=== PATIENT | male | born 1955 | race Caucasian/White ===

== ENCOUNTER 2022-10-15 03:13 | Inpatient (IN) ==
[2022-10-15] MEDS ORDERED: ASPIRIN CHEW 324 MG ONE (03:21)
[2022-10-15] MEDS ORDERED: ASPIRIN CHEW 324 MG PO STA (03:22)
[2022-10-15] MEDS ORDERED: NITROGLYCERIN SL 0.4 MG/TAB TAB ONE (03:22)
[2022-10-15] MEDS ORDERED: NITROGLYCERIN SL 0.4 MG/TAB TAB SL STA (03:22)
[2022-10-15] MEDS ORDERED: fentaNYL citrate PF 100 MCG/2 ML VIAL ONE ×2 (03:22→03:44)
[2022-10-15] MEDS ORDERED: fentaNYL citrate PF 100 MCG/2 ML VIAL IV STA (03:22)
--- NOTE | 2022-10-15 03:25 | Emergency Department Note ---
History of Present Illness General Chief complaint: Chest Pain Stated complaint: CHEST PAIN Time Seen by Provider: 10/15/22 03:14 History of Present Illness Maximum Pain Intensity: 7 66-year-old male presents emergency department onset of substernal chest pressure radiating down his right arm and into his right jaw that started at 11 PM this evening while he was in bed ready for sleep. Patient states has been persistent since that time patient rates it as moderate 5 out of 10 there is no associated nausea vomiting diaphoresis or shortness of breath. Patient did not take any medicine prior to arrival. He has no prior cardiac history. Does not smoke. He has no history of cardiac catheterization in the past. Patient states that the pain was persistent and now presents with the complaint of substernal chest pressure Home Medications Medication Instructions Recorded Confirmed Type omeprazole 20 mg capsule,delayed 20 mg PO DAILY 10/04/20 10/04/20 History release alfuzosin 10 mg tablet,extended 10 mg PO DAILY #90 tabs 10/23/21 10/23/21 Rx release 24 hr (Uroxatral) Allergies Allergy/AdvReac Type Severity Reaction Status Date / Time No Known Allergies Allergy Verified 10/04/20 14:39 Past Med/Surg History Medical History BPH with obstruction/lower urinary tract symptoms Family History Grandfather (Paternal) Prostate cancer Social History Smoking Status: Never smoker Preferred Language: Occitan marital status: 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 Review of Systems A total of 10 systems reviewed and were otherwise negative Cardiovascular: + chest pain and + radiating jaw, neck or arm pain Physical Exam Vital Signs Vital Signs - 24 hr 10/15/22 03:18 10/15/22 03:21 10/15/22 03:25 Temperature 36.5 C Temperature Source Oral Pulse Rate 110 H 103 H 107 H Pulse Rate from SpO2 Sensor Pulse Rhythm Regular Respiratory Rate 20 20 Respiratory Effort / Characteristics Non-Labored Spontaneous Respiratory Depth Normal Respiratory Pattern Regular Blood Pressure 102/66 Blood Pressure [Right Arm] Blood Pressure Mean 78 Blood Pressure Mean [Right Arm] Pulse Oximetry 93 95 Oxygen Delivery Method Room Air Room Air Oxygen Flow Rate Sepsis Recent Fever Within 48 Hours No Sepsis New/Unexplained Change in Mental Status No Sepsis Action Taken by Nursing No Action Required 10/15/22 03:26 10/15/22 03:34 10/15/22 03:35 Temperature Temperature Source Pulse Rate 93 H Pulse Rate from SpO2 Sensor 92 H Pulse Rhythm Respiratory Rate 15 Respiratory Effort / Characteristics Respiratory Depth Respiratory Pattern Blood Pressure 92/66 L Blood Pressure [Right Arm] 118/73 Blood Pressure Mean 74 Blood Pressure Mean [Right Arm] 88 Pulse Oximetry 92 95 Oxygen Delivery Method Room Air Nasal Cannula Oxygen Flow Rate 2 Sepsis Recent Fever Within 48 Hours Sepsis New/Unexplained Change in Mental Status Sepsis Action Taken by Nursing GENERAL: Patient is awake alert in no acute distress patient is resting comfortably and showing no signs of anxiety EYES: The conjunctivae are clear. The pupils are round and reactive. EARS, NOSE, MOUTH AND THROAT: The nose is without any evidence of any deformity. Mucous membranes are moist. Tongue is midline. NECK: The neck is nontender and supple. No JVD RESPIRATORY: Normal respiratory effort is noted there is no evidence of wheezing rhonchi or rales CARDIOVASCULAR: Regular rate and rhythm noted there no murmurs rubs or gallops normal S1 normal S2. GASTROINTESTINAL: The abdomen is soft. Abdomen is nontender. BACK: No midline tenderness or or step-off noted range of motion in flexion extension as well as rotation no signs of muscle spasm noted MUSCULOSKELETAL/EXTREMITIES: There is no evidence of gross deformity full range of motion is noted in the hips and shoulders. SKIN: There is no obvious evidence of any rash. There are no petechiae, pallor or cyanosis noted. No diaphoresis NEUROLOGIC: Patient is awake alert and oriented x3 strength is symmetric Course Reevaluation(s) Reevaluation #1: Patient has been given aspirin, nitro, fentanyl he states the pain is still moderate located in the substernal region with radiation to his right jaw and right arm Time: 03:35 Reevaluation #2: Patient's blood pressure is 93/40 is given IV fluids it is now 102/70 Time: 03:36 Consultations Consultation #1: Dr. Nj at bedside with the patient at 350 Time: 03:53 Consultation #2: Case was discussed with the [facility] for admission Time: 03:53 Administered Medications Discontinued Medications Aspirin (Aspirin Chew 324 Mg) Confirm Administered Dose 324 mg .ROUTE .STK-MED ONE Stop: 10/15/22 03:22 Last Admin: 10/15/22 03:34 Dose: Not Given Documented By: JORGE Aspirin (Aspirin Chew 324 Mg) 324 mg PO NOW STA Stop: 10/15/22 03:23 Last Admin: 10/15/22 03:27 Dose: 324 mg Documented By: JORGE Fentanyl Citrate (Fentanyl Citrate 100 Mcg/2 Ml Vial) Confirm Administered Dose 100 mcg .ROUTE .STK-MED ONE Stop: 10/15/22 03:23 Last Admin: 10/15/22 03:34 Dose: Not Given Documented By: JORGE Fentanyl Citrate (Fentanyl Citrate 100 Mcg/2 Ml Vial) 50 mcg IV NOW STA Stop: 10/15/22 03:23 Last Admin: 10/15/22 03:28 Dose: 50 mcg Documented By: JORGE Nitroglycerin (Nitroglycerin Sl 0.4 Mg/Tab Tab) 0.4 mg SL NOW STA Stop: 10/15/22 03:23 Last Admin: 10/15/22 03:28 Dose: 0.4 mg Documented By: JORGE Nitroglycerin (Nitroglycerin Sl 0.4 Mg/Tab Tab) Confirm Administered Dose 1.2 mg .ROUTE .STK-MED ONE Stop: 10/15/22 03:23 Last Admin: 10/15/22 03:34 Dose: Not Given Documented By: JORGE Critical Care Time Critical Care Time: Yes Total Critical Care Time: 35 I have personally spent greater than 35 minutes of critical care time in the direct management of this patient. This includes bedside care, interpretation of diagnostic studies, and testing, discussion with consultants, patient, and family members, and other required patient management activities. These minutes are in excess of all separately billable procedures. Medical Decision Making Medical Records Attestation: I reviewed the patient's medical records. Home Medications Current Medication List: was personally reviewed by me Laboratory Data Attestation: I reviewed the patient's lab results. 10/15/22 03:29 10/15/22 03:29 Lab Results 10/15/22 Range/Units 03: WBC 3.79 L (4.8-10.8) K/ul RBC 5.06 (4.70-6.10) M/uL Hgb 15.8 (14.0-18.0) g/dl Hct 46.3 (42.0-52.0) % MCV 91.5 (80.0-100.0) fL MCH 31.2 (25.0-34.0) pg MCHC 34.1 (32.0-36.0) g/dL RDW Std Deviation 40.0 (36.4-46.3) fL RDW Coeff of Kayla 12.0 (11.5-14.5) % Plt Count 217 (130-400) K/uL MPV 9.0 L (9.4-12.4) fL Immature Gran % (Auto) 0.3 % Neut % (Auto) 44.3 % Lymph % (Auto) 39.8 % [place] % (Auto) 12.7 % Eos % (Auto) 2.4 % Baso % (Auto) 0.5 % Neut # (Auto) 1.68 (1.40-6.50) K/uL Lymph # (Auto) 1.51 (1.2-3.4) K/uL [place] # (Auto) 0.48 (0.11-0.59) K/uL Eos # (Auto) 0.09 (0-0.50) K/uL Baso # (Auto) 0.02 (0-0.2) K/uL Immature Gran # (Auto) 0.01 (0.01-0.20) K/uL Imaging Data Attestation: I personally reviewed and interpreted this imaging study as follows: My Impression: Chest x-ray interpreted by me normal mediastinum, no pneumothorax, no infiltrate, no effusion ECG Data Attestation: I personally reviewed and interpreted this ECG as follows: Additional Comments: EKG interpreted by me normal sinus rhythm rate of 98 there are segment depressions in V1 and V2 and increase in ST segments in V4 through V6 consistent with a posterolateral FL, normal axis normal intervals, no prior for comparison Telemetry was ordered by me, interpreted by me as sinus tachycardia at 107 MDM Narrative Medical decision making differential diagnosis includes angina, unstable angina, acute FL, acute coronary syndrome, musculoskeletal chest pain, I do not suspect thoracic aortic dissection or pulmonary embolism at this time Patient has an EKG suggestive of posterior lateral FL, a heart called immediately Patient was given aspirin, nitro, fentanyl Impression & Plan Acute ST elevation myocardial infarction (STEMI) of posterolateral wall Discharge Plan Visit Data Chief Complaint: Chest Pain Stated Complaint: CHEST PAIN ED Provider: Roberto Patel Discharge Problem: Acute ST elevation myocardial infarction (STEMI) of posterolateral wall Forms Stand Alone Forms: My [facility] [place] [facility] Prescriptions Prescriptions: No Action omeprazole 20 mg capsule,delayed release(DR/EC) 20 mg PO DAILY alfuzosin [Uroxatral] 10 mg tablet extended release 24 hr 10 mg PO DAILY Qty: 90 3RF Rx Instructions: administer after the same meal each day Referrals Referrals: Truong Nichole MD [Primary Care Provider] -
[2022-10-15] MEDS ORDERED: niCARdipine HCL INJ 2.5 MG/ML 10 ML AMP ONE (03:43)
[2022-10-15] MEDS ORDERED: HEPARIN (PORCINE) 1000 UNIT/ML 10 ML (CATH LAB USE ONLY) ONE (03:43)
[2022-10-15] MEDS ORDERED: MIDAZOLAM HCL 1 MG/ML 2ML VIAL ONE (03:43)
[2022-10-15] MEDS ORDERED: NITROGLYCERIN/D5W 100MCG/ML 20ML SYR ONE (03:44)
--- NOTE | 2022-10-15 03:44 | History & Physical Report ---
Date of Service October 15, 2022 Assessment & Plan (1) Acute ST elevation myocardial infarction (STEMI) of posterolateral wall: Plan: Grant Pete is a 66-year-old male with PMH of BPH who presented due to chest pain. STEMI - EKG c/w posterolateral ischemia - s/p ASHELY to 100% mid circumflex occlusion - Cath also showing mid-LAD 90% stenosis at branch point with diagonals - Cardiology planning for further intervention later this hospitalization - Received Brilinta load - Aspirin 81mg daily, atorvastatin 80mg daily, metoprolol tartrate 12.5mg PO BID, ticagrelor 90mg PO BID - Trend troponin to peak - Check Echocardiogram - Follow Cardiology recs - Admit to ICU for monitoring post PCI/ASHELY BPH - Hold alfuzosin at this time - Defer to ICU/Cardiology GERD - Pantoprazole per hospital formulary DVT ppx: Receiving ASA & ticagrelor, no further chemoppx at this time Diet: Heart healthy Dispo: Admit to ICU CODE STATUS: Full (2) BPH with obstruction/lower urinary tract symptoms: History of Present Illness Primary Care Provider: Truong Nichole MD Grant Pete is a 66-year-old male with PMH of BPH who presented due to chest pain. Symptoms began around 11PM on 10/14 with substernal chest pain radiating to right arm and right jaw. He rated the pain as 5/10 and felt it was persistent. He did not take any medications prior to arrival. He has no prior history of cardiac disease or similar symptoms. He is a nonsmoker. Does have FH of [place] in his father at age 62. In ED, he had an EKG consistent with posterolateral ischemia. Heart alert was called. Patient received aspirin 324mg, nitroglycerin, and fentanyl. He was evaluated by Cardiology who recommended emergent catheterization. He was loaded with Brilinta. Cath showed a 100% mid circumflex occlusion, which was revascularized with one ASHELY. Additionally, was found to have a complex mid- LAD stenosis, 90% at branch point with diagonals -- Cardiology planning for intervention later on this hospitalization. Tolerated procedure well w/o complications. Currently no CP, palp, SOB, n/v, abd pain, back pain, CHEUNG, dizziness. Allergies Allergy/AdvReac Type Severity Reaction Status Date / Time No Known Allergies Allergy Verified 10/04/20 14:39 Home Medications Medication Instructions Recorded Confirmed Type omeprazole 20 mg capsule,delayed 20 mg PO DAILY 10/04/20 10/04/20 History release alfuzosin 10 mg tablet,extended 10 mg PO DAILY #90 tabs 10/23/21 10/23/21 Rx release 24 hr (Uroxatral) Past Med/Surg History Medical History BPH with obstruction/lower urinary tract symptoms Family History Grandfather (Paternal) Prostate cancer Social History Smoking Status: Never smoker Second Hand Exposure: No; Do You Dip or Chew Tobacco: No; Hx Alcohol Use: No Hx Substance Use: No Preferred Language: Welsh Communication Ability: Effective Power Brake Operator Required: No Beliefs That Will Affect Care: None marital status: Current Living Situation: Spouse 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 Groggy. HEENT: PERRL, EOMI. Moist mucous membranes. NECK: No JVD. No lymphadenopathy. CHEST/LUNGS: CTAB A/P. No crackles, wheezes, rales, rhonchi. HEART: RRR. No m/g/r. ABDOMEN: NT/ND, soft. BS+ x4 EXTREMITIES: No cyanosis, no clubbing, no edema SKIN: Warm and dry. No rashes or lesions. NEUROLOGIC: No FND Results & Data Results & Data ([facility]) Vital Signs (Past 12 Hours) Vital Signs Temp Pulse Resp BP BP Pulse Ox O2 Del Method 10/15/22 03:35 93 H 15 92/66 L 95 Nasal Cannula 10/15/22 03:34 92 Room Air 10/15/22 03:26 118/73 10/15/22 03:25 107 H 20 95 Room Air 10/15/22 03:21 103 H 10/15/22 03:18 36.5 C 110 H 20 102/66 93 Room Air O2 Flow Rate 10/15/22 03:35 2 10/15/22 03:34 10/15/22 03:26 10/15/22 03:25 10/15/22 03:21 10/15/22 03:18 Critical Care Time 40 minutes Supervising Physician Co-Signing Physician Notes Attending addendum: I have physically seen this patient, have supervised the medical residents activities, and agree with the H&P unless as otherwise noted. Assessment and Plan: Acute posterior lateral wall STEMI- Patient presented as heart alert to the ED Status post ASHELY to 100% mid circumflex occlusion Cardiology orders per interventional Dr. Nj Admission to ICU Follow serial troponins Order complete echocardiogram Aspirin 81 mg daily, ticagrelor 90 mg p.o. twice daily and metoprolol tartrate 12.5 mg p.o. twice daily Hyperlipidemia- Empiric high-dose atorvastatin 80 mg daily Check a fasting the panel and hemoglobin A1c BPH holding alfuzosin for now GERD- Change omeprazole to pantoprazole per formulary interchange Remaining orders per interventional cardiology and coat check attendant team Resident Activity Tracking Resident Involvement: Resident Care Provided Care Provided: Adult Hospital Medicine
[2022-10-15 03:45] LABS: Basophils # (auto) 0.02 K/uL (0-0.2); Basophils % (auto) 0.5 %; Eosinophils # (auto) 0.09 K/uL (0-0.50); Eosinophils % (auto) 2.4 %; Hematocrit (blood only) 46.3 % (42.0-52.0); Hemoglobin 15.8 g/dl (14.0-18.0); Immature Granulocytes # (auto) 0.01 K/uL (0.01-0.20); Immature Granulocytes % (auto) 0.3 %; Lymphocytes # (auto) 1.51 K/uL (1.2-3.4); Lymphocytes % (auto) 39.8 %; Mean Corpuscular Hemoglobin 31.2 pg (25.0-34.0); Mean Corpuscular Hgb Conc 34.1 g/dL (32.0-36.0); Mean Corpuscular Volume 91.5 fL (80.0-100.0); Monocytes # (auto) 0.48 K/uL (0.11-0.59); Monocytes % (auto) 12.7 %; Neutrophils # (auto) 1.68 K/uL (1.40-6.50); Neutrophils % (auto) 44.3 %; Platelet Count 217 K/uL (130-400); Red Blood Count 5.06 M/uL (4.70-6.10); White Blood Count 3.79 K/ul (4.8-10.8)
--- NOTE | 2022-10-15 03:57 | Pre Anesthesia Assessment ---
Date of Service October 15, 2022 Pre Sedation Assessment Vital Signs Temp Pulse Resp BP BP Pulse Ox O2 Del Method 10/15/22 03:35 93 H 15 92/66 L 95 Nasal Cannula 10/15/22 03:34 92 Room Air 10/15/22 03:26 118/73 10/15/22 03:25 107 H 20 95 Room Air 10/15/22 03:21 103 H 10/15/22 03:18 97.7 F 110 H 20 102/66 93 Room Air O2 Flow Rate 10/15/22 03:35 2 10/15/22 03:34 10/15/22 03:26 10/15/22 03:25 10/15/22 03:21 10/15/22 03:18 Cardiovascular RRR, no murmur, no edema Respiratory normal respiratory effort, lungs clear to auscultation Pre-Sedation Airway Assessment Smoking Status: Never smoker Hx Sleep Apnea: No Hx Difficult Intubation: No Short, Thick Neck: No Thyromental Distance: > or= 3.5 Finger Breadths ASA: ASA4 Procedure Planning Contraindications for Sedation: none Current Medications Reviewed: Yes Notes The planned sedation has been discussed with the patient. Informed Consent was obtained. I have identified the patient, determined the appropriateness of sedation and have assessed the patient immediately prior to the procedure. All medicine(s) and interventions are by my order.
--- NOTE | 2022-10-15 03:57 | Cardiac Catheterization ---
[facility] Data: Reservation Agent Cardiac Status Clinical evaluation leading to the procedure CAD Presenation: STEMI Anginal Classification: CCS IV Diagnostic Physicians Name: Jonathan Nj MD Closure Device Recommendations: PCI without planned CABG Cardiac Cath Procedure Full Procedure Date October 15, 2022 Pre-Procedure Diagnosis Pre-Procedure Diagnosis: STEMI AUC Score AUC Score: 9 Post-Procedure Diagnosis Post-Procedure Diagnosis: Severe CAD, Successful PCI and Elevated Intracardiac Pressures Procedure(s) Performed Procedure(s) Performed: Coronary Angiography, Left Heart Cath and Drug Eluting Stent Borematic Operator Jonathan Nj MD Electronic Resources Librarian(s) [place] Estimated Blood Loss Estimated Blood Loss: 10 Medication(s) Medication(s): Fentanyl, Heparin, Lidocaine 1%, Nicardipine, Nitroglycerin and Versed Medication(s): Ticagrelor Summary of Findings Indication: STEMI/Heart Alert (Lateral/posterior STEMI) Access: 6 Fr right radial artery Catheters: EBU 3.5 guide, diagnostic JR4 Findings: LM -normal caliber, 20% distal disease LAD -medium caliber, diffuse proximal to mid disease with 70% disease extending from proximal segment across takeoff of D1 and 95% stenosis after takeoff of D2. Remainder of mid/distal LAD without significant disease and extends to apex. Small to medium D1 with 90% ostial disease before bifurcates. Medium D2 with 90% ostial disease. Ramusramus, medium caliber, 70 to 80% ostial/proximal disease Circumflex -40% ostial, 100% acute mid occlusion after takeoff of small OM1. RCA -dominant, large caliber, 30% mid segment disease, distal vessel, PDA/PLB without disease. LVEDP -20 -- PCI -- Antithrombotic therapy: Heparin, ticagrelor Procedure: Left main cannulated with EBU 3.5 guide Tooling Supervisor 50 wire passed across lesion into distal vessel Mid circumflex lesion predilated with 2.0 compliant balloon Dilated lesion stented with 2.75 x 18 mm [place] drug-eluting stent into large OM 2 Stent post-dilated with 3.0 noncompliant balloon IC vasodilators administered for spasm Post procedure ALISON 3 flow, stent well expanded with minimal residual stenosis and no apparent cardiac complications. Jailed small OM 3 and distal AV groove circumflex with ALISON-3 flow. Patient chest pain-free. Arterial Closure: TR band Summary: 1. Acute 100% mid circumflex occlusion 2. Multivessel non-culprit coronary artery disease -70% proximal, 95% mid LAD. 90% ostial D1, 90% ostial medium D2. 70% ostial/proximal ramus 30% mid RCA 3. Elevated intracardiac filling pressure 4. Successful PCI of mid circumflex acute occlusion with single drug-eluting stent into OM2 (2.75 x 18 mm [place]; postdilated with 3.0 NC). Recommendations: Admit to ICU for continued monitoring Loaded with ticagrelor 180 mg in Reservation Agent Continue dual-antiplatelet therapy for at least 1 year. Trend troponins until peak, Check Echo Uptitrate beta-lul/TYRONE as BP allows High-dose statin Consult cardiac Rehab Plan on staged PCI of diffuse proximal to mid LAD disease involving bifurcation with D1/D2 at some point during hospitalization. Medical management of remaining CAD. Hemodynamics Rest Ao:: 99/60/81 Final Ao: 93/52/72 LV: 94/21 Recommendations Recommendations: PCI without planned CABG Specimens Specimens: None Radiation Exposure (mGy) 2300 Contrast (mls) 110 Anesthesia Moderate 9500-7784 Procedural Complication(s) None Disposition ICU I attest to the content of the Intraoperative Record and any orders documented therein. Any exceptions are noted below. [facility] Card Cath Procedure Codes Cardiac Catheterization Procedure 1: Cardiovascular Cath Procedures: 96250 Coronaries and LHC (+/-LV) Moderate Sedation Procedure 1: Sedation/Anesthesia: 82015 Mod Sedation by the same physician;Init15 Min Child Age 5 & Up Procedure 2: Sedation/Anesthesia: 74129 Mod Sedation by the same physician; Ea [id number] Minutes Stenting Procedure 1: Cardiovascular Stent Procedures: 66417 Perc transluminal revascularization of acute sub/total occl, aMI PG Care Time/CCT Total # of Minutes Spent Total Time Spent with Patient: Total time spent is greater than 50% in coordination of care (as documented) at patient's floor/unit and/or counseling patient:
[2022-10-15 04:01] LABS: Albumin Globulin Ratio 1.3 (0.9-2); Albumin Level 4.2 gm/dl (3.4-5.0); BUN Creatinine Ratio 17.6 (10-20); Bilirubin,Total 0.6 mg/dl (0.2-1.0); Calcium 9.1 mg/dl (8.5-10.1); Creatinine Clr Calc Pharmacy 56.8 ml/min; Est GFR (African American) 68.6 ml/min; Est GFR (Non-African American) 59.2 ml/min; Globulin 3.2 gm/dl (2.5-4.0); Potassium 3.9 mmol/L (3.5-5.1); Total Protein 7.4 gm/dl (6.0-8.3)
--- NOTE | 2022-10-15 04:01 | Cardiology Consultation ---
Date of Consultation October 15, 2022 Assessment & Plan (1) Acute ST elevation myocardial infarction (STEMI) of posterolateral wall: Presentation consistent with lateral/posterior STEMI and recommend proceeding with emergent cardiac catheterization and likely primary PCI. No apparent contraindications to procedure. Discussed risks, benefits, alternatives of procedure with patient and they are willing to proceed. Further recommendations pending findings of coronary angiography. History of Present Illness History of Present Illness Mr. Pete is a 66-year-old man here with acute chest pain and ECG concerning for acute WI. Patient seen emergently in the ED after heart alert activated on arrival. No prior cardiac history. Cardiac risk factors include family history of CAD with father having an WI at age 62. Other medical issues include GERD, BPH. Chest pain began approximately 11 PM, 4 hours prior to arrival while sleeping. Describes substernal chest pain, radiating to bilateral arms with mild associated nausea. Denies similar symptoms in the past. Active/exercising at baseline without recent change in exercise tolerance. Since chest pain started has been constant, severity 5/10. Hemodynamically stable on arrival, mildly hypotensive after nitroglycerin/fentanyl in ED, improved with fluids. EKG showed sinus rhythm with lateral, posterior ST elevations. Social history: . 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 Non-smoker. 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 Vascular: 2+ radial Abdomen: Soft, nontender Extremities: Well perfused, no peripheral edema Neuro: Nonfocal Psych: Alert orient x3, normal affect and mood Results & Data ([facility]) Vital Signs (Past 12 Hours) Vital Signs Temp Pulse Resp BP BP Pulse Ox O2 Del Method 10/15/22 03:35 93 H 15 92/66 L 95 Nasal Cannula 10/15/22 03:34 92 Room Air 10/15/22 03:26 118/73 10/15/22 03:25 107 H 20 95 Room Air 10/15/22 03:21 103 H 10/15/22 03:18 97.7 F 110 H 20 102/66 93 Room Air O2 Flow Rate 10/15/22 03:35 2 10/15/22 03:34 10/15/22 03:26 10/15/22 03:25 10/15/22 03:21 10/15/22 03:18 PG Care Time/CCT Total # of Minutes Spent Total Time Spent with Patient: Total time spent is greater than 50% in coordination of care (as documented) at patient's floor/unit and/or counseling patient: Coding Level of Care Code 52506 INT INP/OBS CARE 375MIN Diagnoses Acute ST elevation myocardial infarction (STEMI) of posterolateral wall I21.29
[2022-10-15 04:07] LABS: Troponin I High Sensitivity 46.2 pg/ml (0-20)
[2022-10-15] MEDS ORDERED: TICAGRELOR 90 MG TAB ONE (04:41)
[2022-10-15] MEDS ORDERED: ACETAMINOPHEN 325 MG TAB PO PRN (04:52)
[2022-10-15] MEDS ORDERED: ONDANSETRON INJ 2 MG/ML 2 ML VIAL IV PRN (04:52)
[2022-10-15] MEDS ORDERED: SODIUM CHLORIDE 0.9% 1000ML 1,000 ML IV SCH (05:00)
[2022-10-15 05:28] LABS: Chol HDL Ratio 4.3 (0-5)
--- NOTE | 2022-10-15 06:05 | Critical Care Consultation ---
Date of Consultation October 15, 2022 Assessment & Plan (1) Acute ST elevation myocardial infarction (STEMI) of posterolateral wall: 66-year-old male presents to the ICU with posterior lateral STEMI, status post ASHELY x1 to the mid circumflex for 100% occlusion with plan to undergo additional PCI to LAD for 90% occlusion. -Loaded with Brilinta, aspirin 324 mg in the ED -Continue ASA, statin, MTP, Tticagrelor -Trend troponins repeat -Follow-up echo -Follow-up cardiology recommendation -Admitted to ICU for further monitoring (2) BPH with obstruction/lower urinary tract symptoms: Continue alfuzosin (3) GERD (gastroesophageal reflux disease): Pantoprazole Supervising Physician Co-Signing Physician Notes Patient seen and examined. EMR reviewed. Discussed with critical care KEILA. The patient is doing well. He is awake alert and conversant. No chest pain or shortness of breath. Tolerating a diet. He is hemodynamically stable. Plan to proceed with staged procedure later this hospitalization. Disposition deferred to the cardiology team but his critical care needs appear resolved. History of Present Illness Attending Physician: Darrion Quiroz MD History of Present Illness Mr. Pryor is a 66-year-old male with past medical history of BPH, GERD who presented to the emergency department with onset of chest pain with radiation to arms jaw. Patient stated that he began to have symptoms of chest pain around 11:00 last night that became more persistent. He had taken omeprazole earlier in the evening thinking he had developed heartburn, but this did not improve. On presentation in the emergency department patient was noted to have posterior lateral ischemia.He received aspirin, nitro, and fentanyl and was taken to the [facility] where he received ASHELY x1 to 400% mid circumflex occlusion. Patient was also found to have complex mid LAD stenosis require additional PCI in this hospitalization. Patient now admitted to ICU for further monitoring at this time. On arrival to the ICU the patient is alert and oriented and is currently chest pain-free post cath. He currently denies headache, dizziness, recent fevers, cough or congestion, nausea vomiting or diarrhea, shortness of breath, palpitations, abdominal pain, swelling in hands or feet. Allergies Allergy/AdvReac Type Severity Reaction Status Date / Time No Known Allergies Allergy Verified 10/04/20 14:39 Home Medications Medication Instructions Recorded Confirmed Type omeprazole 20 mg capsule,delayed 20 mg PO DAILY 10/04/20 10/04/20 History release alfuzosin 10 mg tablet,extended 10 mg PO DAILY #90 tabs 10/23/21 10/23/21 Rx release 24 hr (Uroxatral) Patient History Medical History BPH with obstruction/lower urinary tract symptoms Family History Grandfather (Paternal) Prostate cancer Social History Smoking Status: Never smoker Second Hand Exposure: No; Do You Dip or Chew Tobacco: No; Hx Alcohol Use: No Hx Substance Use: No Preferred Language: Icelandic Communication Ability: Effective Hog Ringer Required: No Beliefs That Will Affect Care: None marital status: Current Living Situation: Spouse 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 Other Information That Helps Us Care for You: No Feels Safe at Home: Yes Safety Concerns: Feels Safe At This Time Review of Systems Review of Systems: All systems reviewed & are unremarkable except as noted in HPI & below Physical Exam Constitutional: cooperative and comfortable; no acute distress Eyes: PERRL, conjunctivae normal, anicteric sclerae ENMT: external ear and nose normal, oropharynx normal Neck: trachea midline, no thyromegaly Respiratory: normal respiratory effort, lungs clear to auscultation Cardiovascular: RRR, no murmur, no edema Gastrointestinal (Abdomen): normal bowel sounds, soft, nontender, no hepatosplenomegaly Musculoskeletal: no cyanosis or clubbing, extremities motor strength 5/5 Skin: no rashes, warm and dry Neurologic: PERRL, EOMI, accommodation nl, no face palsy, no dysarthria Psychiatric: A+Ox3, euthymic affect Results & Data Results & Data ([facility]) Vital Signs (Past 12 Hours) Vital Signs Temp Pulse Pulse Resp BP BP Pulse Ox 10/15/22 05:57 86 16 104/64 97 10/15/22 05:15 36.5 C 93 H 14 109/65 93 10/15/22 03:50 102 H 21 125/70 99 10/15/22 03:45 96 H 14 120/72 98 10/15/22 03:40 92 H 12 102/66 97 03/15/23 03:35 93 H 15 92/66 L 95 10/15/22 03:34 92 10/15/22 03:26 118/73 10/15/22 03:25 107 H 20 95 10/15/22 03:21 103 H 10/15/22 03:18 36.5 C 110 H 20 102/66 93 O2 Del Method O2 Flow Rate 10/15/22 05:57 10/15/22 05:15 Room Air 10/15/22 03:50 10/15/22 03:45 10/15/22 03:40 10/15/22 03:35 Nasal Cannula 2 10/15/22 03:34 Room Air 10/15/22 03:26 10/15/22 03:25 Room Air 10/15/22 03:21 10/15/22 03:18 Room Air Coding Level of Care Code 04347 IN/OBS CONSULT LVL 3,45M Diagnoses Acute ST elevation myocardial infarction (STEMI) of posterolateral wall I21.29 BPH with obstruction/lower urinary tract symptoms N40.1; N13.8 GERD (gastroesophageal reflux disease) K21.9 Time Spent (min) 40
[2022-10-15] MEDS ORDERED: Flu Vaccine-High Dose (Fluzone-HD) PF 65+ 0.7mL SYR IM ONE (06:15)
[2022-10-15] MEDS ORDERED: POTASSIUM CHLORIDE / WTR 10 MEQ/100 ML PLCT IV ONE (06:47)
--- NOTE | 2022-10-15 07:06 | XRay Report ---
XR chest 1V portable CLINICAL HISTORY: Chest pain, nonspecific COMPARISON STUDY: No previous studies for comparison. FINDINGS: There is no pneumothorax or pleural effusion. Cardiac size is normal. Mild asymmetric inter stitial thickening within the left lung is present. There is a possible small hiatal hernia. IMPRESSION: Mild asymmetric interstitial thickening within the left lung. This is nonspecific and could reflect a n infectious process or asymmetric pulmonary edema. Radiographic follow-up is recommended. This findi ng will be called/faxed to ordering provider at time of dictation. ACT 112: Negative or not required by law. Electronically signed by: Ector Aguilar M.D. 10/15/2022 7:05 AM
[2022-10-15] MEDS: METOPROLOL TARTRATE 25 MG TAB PO SCH ×2 (07:57→20:44)
[2022-10-15] MEDS: ATORVASTATIN 40 MG TAB PO SCH (07:57)
[2022-10-15] MEDS: PANTOprazole 40 MG TAB PO SCH (07:57)
[2022-10-15] MEDS: ICU Protocol for HYPERglycemia SCH ×3 (08:00→16:06)
[2022-10-15] MEDS: ASPIRIN 81 MG ECTAB PO SCH (08:00)
[2022-10-15] MEDS ORDERED: POTASSIUM CHLORIDE CRTAB 20 MEQ TABCR PO STA (08:40)
[2022-10-15] MEDS ORDERED: POTASSIUM CHLORIDE CRTAB 20 MEQ TABCR PO SCH (13:00)
[2022-10-15] MEDS ORDERED: ICU ELECTROLYTE REPLACEMENT PROTOCOL SCH (18:00)
--- NOTE | 2022-10-15 18:24 | XCELERA ---
[id number]
--- NOTE | 2022-10-15 18:34 | Communication Note ---
Date of Service: October 15, 2022 Patient feeling well this afternoon. Denies any recurrent chest pain. No shortness of breath. Telemetry unremarkable. Echo - mildly reduced LVEF 40-45% with severe posterior/lateral hypokinesis. HsTropI > 29204 No heart failure on exam. No access site complications. Assessment/Plan: 1. Lateral/posterior STEMI -- post PCI with ASHELY of mLCx into OM2 2. Severe non-culprit CAD -- diffuse LAD upto 90% mid, 70% proximal ramus 3. ICM -- EF 40-45% 4. Mild mitral regurgitation. 5. Dyslipidemia -- LDL 115 -- trend trop until peak -- Continue DAPT with ASA/Ticagrelor -- Continue statin -- Continue current metoprolol, titrate as able. Toprol XL on discharge -- Start ARB Doing well from a cardiac standpoint. OK with transfer to telemetry today. Plan for staged PCI of proximal to mid LAD tomorrow, NPO past midnight.
[2022-10-15] MEDS: TICAGRELOR 90 MG TAB PO SCH (20:44)
[2022-10-16 01:28] LABS: BUN Creatinine Ratio 16.1 (10-20); Calcium 8.9 mg/dl (8.5-10.1); Creatinine Clr Calc Pharmacy 47.2 ml/min; Est GFR (African American) 61.4 ml/min; Magnesium 1.9 mg/dl (1.7-2.4); Phosphorus 2.5 mg/dl (2.5-4.9); Potassium 3.8 mmol/L (3.5-5.1)
[2022-10-16 02:02] LABS: Basophils # (auto) 0.03 K/uL (0-0.2); Basophils % (auto) 0.4 %; Eosinophils # (auto) 0.13 K/uL (0-0.50); Eosinophils % (auto) 1.8 %; Hematocrit (blood only) 42.4 % (42.0-52.0); Hemoglobin 14.5 g/dl (14.0-18.0); Immature Granulocytes # (auto) 0.01 K/uL (0.01-0.20); Immature Granulocytes % (auto) 0.1 %; Lymphocytes # (auto) 1.68 K/uL (1.2-3.4); Lymphocytes % (auto) 23.6 %; Mean Corpuscular Hemoglobin 31.2 pg (25.0-34.0); Mean Corpuscular Hgb Conc 34.2 g/dL (32.0-36.0); Mean Corpuscular Volume 91.2 fL (80.0-100.0); Mean Platelet Volume 9.3 fL (9.4-12.4); Monocytes # (auto) 0.81 K/uL (0.11-0.59); Monocytes % (auto) 11.4 %; Neutrophils # (auto) 4.46 K/uL (1.40-6.50); Neutrophils % (auto) 62.7 %; Platelet Count 201 K/uL (130-400); Platelet Estimate Normal (Normal); RDW Coefficient of Variation 12.3 % (11.5-14.5); RDW Standard Deviation 40.5 fL (36.4-46.3); Red Blood Count 4.65 M/uL (4.70-6.10); White Blood Count 7.12 K/ul (4.8-10.8)
--- NOTE | 2022-10-16 03:31 | Billing Data ---
Date of Service October 16, 2022 Coding Level of Care Code 95633 CRITICAL CARE
[2022-10-16 08:48] LABS: Estimated Average Glucose 105 mg/dl; Hemoglobin A1C 5.3 % (4.5-5.6)
[2022-10-16] MEDS: METOPROLOL TARTRATE 25 MG TAB PO SCH ×2 (08:59→20:29)
[2022-10-16] MEDS: TICAGRELOR 90 MG TAB PO SCH ×2 (09:00→20:29)
[2022-10-16] MEDS: ALFUZOSIN HCL 10 MG TAB PO SCH (09:01)
[2022-10-16] MEDS: LOSARTAN POTASSIUM 25 MG TAB PO SCH (09:01)
[2022-10-16] MEDS: PANTOprazole 40 MG TAB PO SCH (09:33)
[2022-10-16] MEDS ORDERED: HEPARIN (PORCINE) 1000 UNIT/ML 10 ML (CATH LAB USE ONLY) ONE (11:14)
[2022-10-16] MEDS ORDERED: MIDAZOLAM HCL 1 MG/ML 2ML VIAL ONE (11:14)
[2022-10-16] MEDS ORDERED: niCARdipine HCL INJ 2.5 MG/ML 10 ML AMP ONE (11:14)
[2022-10-16] MEDS ORDERED: NITROGLYCERIN/D5W 100MCG/ML 20ML SYR ONE (11:14)
[2022-10-16] MEDS ORDERED: fentaNYL citrate PF 100 MCG/2 ML VIAL ONE (11:14)
[2022-10-16] MEDS: ATORVASTATIN 40 MG TAB PO SCH (13:39)
[2022-10-16] MEDS: ASPIRIN 81 MG ECTAB PO SCH (13:39)
--- NOTE | 2022-10-16 18:22 | Hospitalist Progress Note ---
Date of Service October 16, 2022 Assessment & Plan (1) Acute ST elevation myocardial infarction (STEMI) of posterolateral wall: Plan: Grant Pete is a 66-year-old male with PMH of BPH who presented due to chest pain. Acute STEMI high risk - EKG c/w posterolateral ischemia - s/p ASHELY to 100% mid circumflex occlusion - Cath also showing mid-LAD 90% stenosis at branch point with diagonals -Performed ASHELY to the LAD lesion on 10/16/2022 - Received Brilinta load continue aspirin and Brilinta for dual antiplatelets -Additional guideline based medicines of atorvastatin 80mg daily, metoprolol tartrate 12.5mg PO BID, losartan -troponin trended peaked and declined - Echocardiogram shows EF 40 to 45% - BPH chronic stable without symptoms - Hold alfuzosin at this time - GERD chronic stable without symptoms - Pantoprazole per hospital formulary (2) BPH with obstruction/lower urinary tract symptoms: Admission and Anticipated Discharge Date Admission Date: October 15, 2022 Subjective pt is without complaints cath access site is clean and intact, distal perfusion is intact Physical Exam Physical Exam: Cardiac exam is regular Lungs are clear and unlabored Catheterization site the right wrist is clean and dry there is no bruising distal capillary refill sensation and strength is intact Results & Data Results & Data Vital Signs (Past 12 Hours) Vital Signs Temp Pulse Pulse Resp BP BP BP 10/16/22 16:00 84 14 10/16/22 16:00 121/72 10/16/22 15:41 118/77 10/16/22 15:41 92 H 18 10/16/22 15:30 85 17 10/16/22 15:30 113/71 10/16/22 15:15 91 H 18 10/16/22 15:15 112/64 10/16/22 15:00 87 18 10/16/22 15:00 106/65 10/16/22 14:45 84 17 10/16/22 14:45 108/67 10/16/22 14:30 79 17 10/16/22 14:30 118/67 10/16/22 14:16 76 19 10/16/22 14:16 122/75 10/16/22 14:00 86 15 10/16/22 14:00 134/83 10/16/22 13:45 123/83 10/16/22 13:45 73 16 10/16/22 13:30 72 16 10/16/22 13:30 120/81 10/16/22 13:15 77 20 10/16/22 13:15 107/79 10/16/22 13:00 75 13 10/16/22 13:00 103/76 10/16/22 12:48 75 16 10/16/22 12:48 114/74 10/16/22 12:47 74 7 L 10/16/22 12:45 10/16/22 12:45 74 10/16/22 12:45 97.7 F 74 18 114/74 114/74 10/16/22 11:00 98.6 F 89 18 121/76 10/16/22 08:00 80 10/16/22 08:00 97.5 F L 88 20 121/76 Pulse Ox Pulse Ox O2 Del Method O2 Del Method 10/16/22 16:00 96 10/16/22 16:00 10/16/22 15:41 10/16/22 15:41 96 10/16/22 15:30 95 10/16/22 15:30 10/16/22 15:15 95 10/16/22 15:15 10/16/22 15:00 94 10/16/22 15:00 10/16/22 14:45 94 10/16/22 14:45 10/16/22 14:30 94 10/16/22 14:30 10/16/22 14:16 96 10/16/22 14:16 10/16/22 14:00 94 10/16/22 14:00 10/16/22 13:45 10/16/22 13:45 96 10/16/22 13:30 98 10/16/22 13:30 10/16/22 13:15 96 10/16/22 13:15 10/16/22 13:00 93 10/16/22 13:00 10/16/22 12:48 96 10/16/22 12:48 10/16/22 12:47 96 10/16/22 12:45 96 Room Air 10/16/22 12:45 10/16/22 12:45 96 Room Air 10/16/22 11:00 96 Room Air 10/16/22 08:00 10/16/22 08:00 96 Room Air Laboratory Results Reviewed CBC Reviewed PRP PG Care Time/CCT Total # of Minutes Spent Total Time Spent with Patient: Total time spent is greater than 50% in coordination of care (as documented) at patient's floor/unit and/or counseling patient: Coding Level of Care Code 49084 SUB INP/OBS CARE 2/35MIN Diagnoses Acute ST elevation myocardial infarction (STEMI) of posterolateral wall I21.29 BPH with obstruction/lower urinary tract symptoms N40.1; N13.8
--- NOTE | 2022-10-16 19:23 | Cardiac Catheterization ---
[facility] Data: Remote Control Assembler Cardiac Status Clinical evaluation leading to the procedure CAD Presenation: STEMI Diagnostic Physicians Name: Jonathan Nj MD Closure Device Recommendations: PCI without planned CABG Cardiac Cath Procedure Full Procedure Date October 16, 2022 Pre-Procedure Diagnosis Pre-Procedure Diagnosis: STEMI AUC Score AUC Score: 7 Post-Procedure Diagnosis Post-Procedure Diagnosis: Severe CAD, Successful PCI and Normal Intracardiac Pressures Procedure(s) Performed Procedure(s) Performed: Coronary Angiography, Left Heart Cath, Drug Eluting Stent and IVUS Sorting Cows Worker Jonathan Nj MD Telecommunications Line Mechanic(s) Kimberly Estimated Blood Loss Estimated Blood Loss: 10 Medication(s) Medication(s): Fentanyl, Heparin, Lidocaine 1%, Nicardipine, Nitroglycerin and Versed Medication(s): Ticagrelor Summary of Findings Indication: Staged PCI of proximal to mid LAD. Post PCI for posterior/lateral STEMI 10/15/2022 with single ASHELY. Access: 6 Fr right radial artery Catheters: EBU 3.75 guide Findings: For full details of patient's coronary angiography please see cath report on 10/15/2022. Briefly, patient again found to have severe proximal to mid LAD disease up to 95% after takeoff of D2. Had 90% ostial stenosis in D1, D2. Prior circumflex stent widely patent. -- PCI -- Antithrombotic therapy: Heparin, ticagrelor Procedure: Left main cannulated with EBU 3.75 guide Pre-procedure flow ALISON 2 Rotary Drier Feeder 50 wire passed across lesion into distal LAD Whisper wire placed into distal D2 Proximal to mid LAD lesion predilated with 2.5 compliant balloon Iron IVUS catheter placed into mid LAD. Pullback revealed severe, diffuse disease extending back almost to LAD ostium. Minimal left main disease. Dilated lesion stented with 2.5 x 30 mm [place] drug-eluting stent Stent post-dilated with 2.75 noncompliant balloon Repeat IVUS showed well apposed stent with no apparent edge complications. IC vasodilators administered for spasm Post procedure ALISON 3 flow, stent well expanded with minimal residual stenosis, patent diagonals with ALISON-3 flow and no apparent cardiac complications. Arterial Closure: TR band Summary: 1. Successful PCI of proximal to mid LAD with single drug-eluting stent (2.5 x 38 mm [place]; postdilated with 2.75 NC). Recommendations: To PCU for continued monitoring Continue dual-antiplatelet therapy for at least 1 year, consider extended P2Y12 inhibitor Continue statin, and ASCVD risk factor modification Medical management of residual disease in ramus and jailed D1, D2. Hemodynamics Rest Ao:: 79/44/59 Final Ao: 119/65/85 LV: 118/17 Recommendations Recommendations: PCI without planned CABG Specimens Specimens: None Radiation Exposure (mGy) 2050 Contrast (mls) 75 Anesthesia Moderate 9200-0192 Procedural Complication(s) None Disposition ICU I attest to the content of the Intraoperative Record and any orders documented therein. Any exceptions are noted below. [facility] Card Cath Procedure Codes Cardiac Catheterization Procedure 1: Cardiovascular Cath Procedures: 73888 Left Heart Cath (+/-LV) Therapeutic Services & Ancillary Procedure 1: Cardiovascular Tx and Anc Procedures: 60402 IV Ultrasound (Coronary or Graft) Moderate Sedation Procedure 1: Sedation/Anesthesia: 64011 Mod Sedation by the same physician;Init15 Min Child Age 5 & Up Procedure 2: Sedation/Anesthesia: 68938 Mod Sedation by the same physician; Ea [id number] Minutes Stenting Procedure 1: Cardiovascular Stent Procedures: 55924 Perc transcatheter placement of intracoronary stent(s), with ang PG Care Time/CCT Total # of Minutes Spent Total Time Spent with Patient: Total time spent is greater than 50% in coordination of care (as documented) at patient's floor/unit and/or counseling patient:
--- NOTE | 2022-10-16 23:42 | Cardiology Progress Note ---
Date of Service October 16, 2022 Assessment & Plan (1) Acute ST elevation myocardial infarction (STEMI) of posterolateral wall: Plan: post PCI with ASHELY of mLCx into OM2 2. Severe non-culprit CAD -- diffuse LAD upto 90% mid -- post PCI with ASHELY to pLAD. Residual ramus, diagonal disease 3. ICM -- EF 40-45% 4. Mild mitral regurgitation. 5. Dyslipidemia -- LDL 115 6. Mild TANNER Post successful PCI of prox LAD today. No apparent access site complications. -- Continue DAPT with ASA/Ticagrelor -- Continue statin -- Continue current metoprolol, titrate as able. Toprol XL on discharge -- Start ARB as BP/kidney function allows Monitor overnight. Likely discharge in AM. Admission and Anticipated Discharge Date Admission Date: October 15, 2022 Subjective Feeling well post procedure. Denies chest pain. Post procedure ECG unchanged. Telemetry reviewed - no events. Review of Systems Review of Systems: All systems reviewed & are unremarkable except as noted in HPI & below Physical Exam Physical Exam: General: Comfortable HEENT: Sclerae anicteric Lungs: Clear anteriorly Cardiac: Regular rate and rhythm, no murmurs. Vascular: 2+ radial Abdomen: Soft, nontender Extremities: Well perfused, no peripheral edema Neuro: Nonfocal Psych: Alert orient x3, normal affect and mood Results & Data Vital Signs (Past 12 Hours) Vital Signs Temp Pulse Pulse Resp BP BP BP 10/16/22 19:00 97.5 F L 88 16 123/80 10/16/22 18:30 82 20 10/16/22 18:00 84 17 10/16/22 18:00 112/69 10/16/22 17:30 97 H 15 10/16/22 17:10 97 H 21 10/16/22 17:10 123/84 10/16/22 17:00 90 14 10/16/22 17:00 125/71 10/16/22 16:30 92 H 23 10/16/22 16:30 130/87 10/16/22 16:00 84 14 10/16/22 16:00 121/72 10/16/22 15:41 118/77 10/16/22 15:41 92 H 18 10/16/22 15:30 85 17 10/16/22 15:30 113/71 10/16/22 15:15 91 H 18 10/16/22 15:15 112/64 10/16/22 15:00 87 18 10/16/22 15:00 106/65 10/16/22 14:45 84 17 10/16/22 14:45 108/67 10/16/22 14:30 79 17 10/16/22 14:30 118/67 10/16/22 14:16 76 19 10/16/22 14:16 122/75 10/16/22 14:00 86 15 10/16/22 14:00 134/83 10/16/22 13:45 123/83 10/16/22 13:45 73 16 10/16/22 13:30 72 16 10/16/22 13:30 120/81 10/16/22 13:15 77 20 10/16/22 13:15 107/79 10/16/22 13:00 75 13 10/16/22 13:00 103/76 10/16/22 12:48 75 16 10/16/22 12:48 114/74 10/16/22 12:47 74 7 L 10/16/22 12:45 10/16/22 12:45 74 10/16/22 12:45 97.7 F 74 18 114/74 114/74 Pulse Ox Pulse Ox O2 Del Method O2 Del Method 10/16/22 19:00 96 Room Air 10/16/22 18:30 10/16/22 18:00 96 10/16/22 18:00 10/16/22 17:30 95 10/16/22 17:10 95 10/16/22 17:10 10/16/22 17:00 96 10/16/22 17:00 10/16/22 16:30 94 10/16/22 16:30 10/16/22 16:00 96 10/16/22 16:00 10/16/22 15:41 10/16/22 15:41 96 10/16/22 15:30 95 10/16/22 15:30 10/16/22 15:15 95 10/16/22 15:15 10/16/22 15:00 94 10/16/22 15:00 10/16/22 14:45 94 10/16/22 14:45 10/16/22 14:30 94 10/16/22 14:30 10/16/22 14:16 96 10/16/22 14:16 10/16/22 14:00 94 10/16/22 14:00 10/16/22 13:45 10/16/22 13:45 96 10/16/22 13:30 98 10/16/22 13:30 10/16/22 13:15 96 10/16/22 13:15 10/16/22 13:00 93 10/16/22 13:00 10/16/22 12:48 96 10/16/22 12:48 10/16/22 12:47 96 10/16/22 12:45 96 Room Air 10/16/22 12:45 10/16/22 12:45 96 Room Air PG Care Time/CCT Total # of Minutes Spent Total Time Spent with Patient: Total time spent is greater than 50% in coordination of care (as documented) at patient's floor/unit and/or counseling patient: Coding Level of Care Code 42987 SUB INP/OBS CARE 3/50MIN Diagnoses Acute ST elevation myocardial infarction (STEMI) of posterolateral wall I21.29
[2022-10-17] MEDS ORDERED: SODIUM CHLORIDE 0.65% NA SOLN 45 ML (OCEAN) ONE ×2 (03:48→03:51)
[2022-10-17 05:12] LABS: Basophils # (auto) 0.02 K/uL (0-0.2); Basophils % (auto) 0.3 %; Eosinophils # (auto) 0.14 K/uL (0-0.50); Eosinophils % (auto) 2.2 %; Hematocrit (blood only) 43.2 % (42.0-52.0); Hemoglobin 14.7 g/dl (14.0-18.0); Immature Granulocytes # (auto) 0.01 K/uL (0.01-0.20); Immature Granulocytes % (auto) 0.2 %; Lymphocytes # (auto) 1.18 K/uL (1.2-3.4); Lymphocytes % (auto) 18.8 %; Mean Corpuscular Hemoglobin 30.8 pg (25.0-34.0); Mean Corpuscular Volume 90.6 fL (80.0-100.0); Mean Platelet Volume 9.1 fL (9.4-12.4); Monocytes # (auto) 0.83 K/uL (0.11-0.59); Monocytes % (auto) 13.2 %; Neutrophils # (auto) 4.09 K/uL (1.40-6.50); Neutrophils % (auto) 65.3 %; Platelet Count 208 K/uL (130-400); RDW Coefficient of Variation 12.3 % (11.5-14.5); RDW Standard Deviation 40.7 fL (36.4-46.3); Red Blood Count 4.77 M/uL (4.70-6.10); White Blood Count 6.27 K/ul (4.8-10.8)
[2022-10-17 05:29] LABS: BUN Creatinine Ratio 16.9 (10-20); Calcium 8.4 mg/dl (8.5-10.1); Creatinine Clr Calc Pharmacy 52.2 ml/min; Est GFR (African American) 69.3 ml/min; Est GFR (Non-African American) 59.8 ml/min; Phosphorus 2.3 mg/dl (2.5-4.9)
--- NOTE | 2022-10-17 06:04 | Electrocardiogram Report ---
Test Reason : Blood Pressure : / mmHG Vent. Rate : 098 BPM Atrial Rate : 098 BPM P-R Int : 144 ms QRS Dur : 104 ms QT Int : 350 ms P-R-T Axes : 039 047 052 degrees QTc Int : 446 ms Poor data quality, interpretation may be adversely affected Normal sinus rhythm ST elevation consider lateral injury or acute infarct ACUTE DC / STEMI Abnormal ECG No previous ECGs available Confirmed by Jeff Palm ([id number]) on 10/17/2022 6:03:55 AM Referred By: REFERRED SELF Confirmed By:Jeff Palm
--- NOTE | 2022-10-17 06:11 | Electrocardiogram Report ---
Test Reason : Blood Pressure : / mmHG Vent. Rate : 086 BPM Atrial Rate : 086 BPM P-R Int : 166 ms QRS Dur : 090 ms QT Int : 390 ms P-R-T Axes : 048 188 049 degrees QTc Int : 466 ms Poor data quality, interpretation may be adversely affected Sinus rhythm Right superior axis deviation Abnormal ECG When compared with ECG of 15-OCT-2022 03:19, ST no longer depressed in Anterior leads ST no longer elevated in Lateral leads Confirmed by Jeff Palm ([id number]) on 10/17/2022 6:10:47 AM Referred By: REFERRED SELF Confirmed By:Jeff Palm
[2022-10-17] MEDS: PANTOprazole 40 MG TAB PO SCH (07:41)
[2022-10-17] MEDS: LOSARTAN POTASSIUM 25 MG TAB PO SCH (07:41)
[2022-10-17] MEDS: METOPROLOL TARTRATE 25 MG TAB PO SCH (07:41)
[2022-10-17] MEDS: ASPIRIN 81 MG ECTAB PO SCH (07:42)
[2022-10-17] MEDS: ALFUZOSIN HCL 10 MG TAB PO SCH (07:42)
[2022-10-17] MEDS: ATORVASTATIN 40 MG TAB PO SCH (07:42)
[2022-10-17] MEDS: TICAGRELOR 90 MG TAB PO SCH (07:42)
--- NOTE | 2022-10-17 18:42 | Discharge Summary ---
Date of Service October 17, 2022 Admission HPI Per Admitting Provider Grant Pete is a 66-year-old male with PMH of BPH who presented due to chest pain. Symptoms began around 11PM on 10/14 with substernal chest pain radiating to right arm and right jaw. He rated the pain as 5/10 and felt it was persistent. He did not take any medications prior to arrival. He has no prior history of cardiac disease or similar symptoms. He is a nonsmoker. Does have FH of [place] in his father at age 62. In ED, he had an EKG consistent with posterolateral ischemia. Heart alert was called. Patient received aspirin 324mg, nitroglycerin, and fentanyl. He was evaluated by Cardiology who recommended emergent catheterization. He was loaded with Brilinta. Cath showed a 100% mid circumflex occlusion, which was revascularized with one ASHELY. Additionally, was found to have a complex mid- LAD stenosis, 90% at branch point with diagonals -- Cardiology planning for intervention later on this hospitalization. Tolerated procedure well w/o complications. Currently no CP, palp, SOB, n/v, abd pain, back pain, CHEUNG, dizziness. Principal Diagnosis Stemi, s/p 2 stents on CX one LAD Discharge Exam Awake alert appropriate. Cath site is clean dry and intact good distal sensation capillary refill cardiac exam is regular Discharge Data Allergies Allergy/AdvReac Type Severity Reaction Status Date / Time No Known Allergies Allergy Verified 10/04/20 14:39 Consultations 10/15/22 03:36 ED Decision to Admit Stat 10/15/22 04:55 Consult Cardiac Rehabilitation Routine 10/15/22 04:56 Consult Senior Clinical Data Coordinator Routine Procedures Performed Operation Date: 10/16/22 11:00 Actual Procedures p Drug Eluting Stent SGl Vessel - Sadi Nj MD s Cineradiography w/Routine Exam - Sadi Nj MD s IVUS Coronary Single Vessel - Sadi Nj MD Ordered Studies 10/15/22 03:39 CL Cath Imgs for PACS use only Stat 10/16/22 06:42 CL Cath Imgs for PACS use only Routine 10/16/22 15:07 CL IVUS Coronary Single Vessel Routine Hospital Course (1) Acute ST elevation myocardial infarction (STEMI) of posterolateral wall: Grant Pete is a 66-year-old male with PMH of BPH who presented due to chest pain. Acute STEMI high risk - EKG c/w posterolateral ischemia - s/p ASHELY to 100% mid circumflex occlusion - Cath also showing mid-LAD 90% stenosis at branch point with diagonals -Performed ASHELY to the LAD lesion on 10/16/2022 - Received Brilinta load continue aspirin and Brilinta for dual antiplatelets -Additional guideline based medicines of atorvastatin 80mg daily, metoprolol XL 25 mg daily , losartan 25 -troponin trended peaked and declined - Echocardiogram shows EF 40 to 45% - BPH chronic stable without symptoms -Resume alfuzosin at discharge - GERD chronic stable without symptoms (2) BPH with obstruction/lower urinary tract symptoms: Total Time Total Time Spent Total Time Spent (In Minutes): It required greater than 30 minutes to prepare this patient for discharge Discharge Plan Discharge Items Patient Disposition: Home - Self-Care Reason For Visit: CHEST PAIN Discharge Diagnosis: myocardial infarction 2 coronary stents placed Activity: Per Instructions section Activity Comment: no work or intentional exercise until released by cardiology Non-emergency contact: Primary Care Provider and [employer] Driver Call non-emergency contact if: your symptoms worsen Follow-up/Referrals: rTuong Nichole MD [Primary Care Provider] - Diet: Heart Healthy Addtl Attending Provider Instructions: ACTIVITY RECOMMENDATIONS: Excess manipulation of the wrist should be avoided for the next 24-48 hours. * No lifting over 2 pounds (approximately a 1/2 gallon of milk) with the util ized arm for 24 hours. * No strenuous activity such as bowling or tennis for 3 days. * Keep the site of the procedure covered with a bandage for 24 hours. *You may shower the day after the procedure. Do not take a tub bath or submerge the puncture site in water for the next 3 days. *Do not operate any motorized equipment for 3 days. SPECIAL CARE INSTRUCTIONS: The site may be slightly bruised and sore following your procedure. Should any of the following occur, contact the Dr. who performed your procedure. 1. Redness/inflammation, swelling, chills, or fever, or colored drainage at procedure site within 3-7 days after your procedure. 2. Coldness, discoloration, ongoing numbness, severe pain, or swelling. Expect mild tingling of hand and tenderness at the puncture site for up to three days. If this persists beyond three days, or other symptoms develop, notify the DrBonnie who performed your procedure. BLEEDING: If the procedure site on your wrist begins to bleed, do not panic 1. Place 1 or 2 fingers firmly just slightly above the insertion site to stop the bleeding. You may be able to feel your pulse as you hold pressure. 2. Lift your finger after 5 minutes to see if the bleeding has stopped. 3. Once the bleeding has stopped, gently wipe the wrist area clean with a bandage. * If the bleeding from your wrist does not stop after 10 minutes, or if there is a large amount of bleeding or spurting, call 911 (do not drive yourself to the hospital). SKIN IRRITATION: * You may experience some redness and/or swelling in the area where radiation was administered. If any skin irritation occurs, please contact your family physician. FOLLOW UP VISIT: Keep any scheduled doctor appointments. Pending Studies at Discharge: No Stand-Alone Forms: [facility], Smoking Cessation Medications and DC Order Prescriptions: New Brilinta 90 mg Tablet 90 mg PO BID Qty: 60 3RF Rx Instructions: if excessive cost please call to change atorvastatin 40 mg Tablet 80 mg PO QAM Qty: 30 5RF aspirin 81 mg Tablet,Delayed Release (Dr/Ec) 81 mg PO QAM Qty: 90 3RF losartan 25 mg Tablet 25 mg PO QAM Qty: 30 5RF metoprolol succinate 25 mg tablet extended release 24 hr 25 mg PO DAILY Qty: 30 5RF Continued omeprazole 20 mg capsule,delayed release(DR/EC) 20 mg PO DAILY alfuzosin [Uroxatral] 10 mg tablet extended release 24 hr 10 mg PO DAILY Qty: 90 3RF Rx Instructions: administer after the same meal each day Discharge Orders: Discharge Order (Routine); Ordered 10/17/22 Ordered By: Deonte Meng Admission Data Admit Date/Time: 10/15/22 04:56 Attending Provider: Deonte Meng Admit Provider: Sadi Nj Primary Care Provider: Truong Nichole Other Providers: Darrion Quiroz Gregory Other Interventions: Discharge Summary Assessment (RN) Last Done: 10/17/22 13:19 Coding Level of Care Code 84469 INP/OBS DISCH >[address] elevation myocardial infarction (STEMI) of posterolateral wall I21.29 BPH with obstruction/lower urinary tract symptoms N40.1; N13.8
--- NOTE | 2022-10-17 22:31 | Cardiology Progress Note ---
Date of Service October 17, 2022 Assessment & Plan (1) Acute ST elevation myocardial infarction (STEMI) of posterolateral wall: Plan: post PCI with ASHELY of mLCx into OM2 2. Severe non-culprit CAD -- diffuse LAD upto 90% mid -- post PCI with ASHELY to pLAD. Residual ramus, diagonal disease 3. ICM -- EF 40-45% 4. Mild mitral regurgitation. 5. Dyslipidemia -- LDL 115 6. Mild TANNER Remains chest pain-free. Electrically stable. No apparent access site complications. From a cardiac standpoint okay with discharge today. Home on: DAPT with ASA/Ticagrelor -- Continue statin -- Toprol-XL, losartan Follow-up with cardiology in 2 weeks. Admission and Anticipated Discharge Date Admission Date: October 15, 2022 Subjective Feeling well today. No chest pain. No other new concerns. Telemetry reviewed - no events. Review of Systems Review of Systems: All systems reviewed & are unremarkable except as noted in HPI & below Physical Exam Physical Exam: General: Comfortable HEENT: Sclerae anicteric Lungs: Clear anteriorly Cardiac: Regular rate and rhythm, no murmurs. Vascular: 2+ radial Abdomen: Soft, nontender Extremities: Well perfused, no peripheral edema Neuro: Nonfocal Psych: Alert orient x3, normal affect and mood Results & Data Vital Signs (Past 12 Hours) Vital Signs Temp Pulse Pulse Resp BP Pulse Ox 10/17/22 13:19 98.1 F 77 14 97/59 L 98 10/17/22 11:57 98.1 F 77 14 97/59 L 98 10/17/22 11:08 77 14 97/59 L 10/17/22 11:08 85 PG Care Time/CCT Total # of Minutes Spent Total Time Spent with Patient: Total time spent is greater than 50% in coordination of care (as documented) at patient's floor/unit and/or counseling patient: Coding Level of Care Code 00421 SUB INP/OBS CARE 2/35MIN Diagnoses Acute ST elevation myocardial infarction (STEMI) of posterolateral wall I21.29
--- NOTE | 2022-10-18 00:39 | Electrocardiogram Report ---
Test Reason : Blood Pressure : / mmHG Vent. Rate : 072 BPM Atrial Rate : 072 BPM P-R Int : 156 ms QRS Dur : 086 ms QT Int : 412 ms P-R-T Axes : 054 211 088 degrees QTc Int : 451 ms Normal sinus rhythm Right superior axis deviation Possible Inferior infarct (cited on or before 15-OCT-2022) Nonspecific T wave abnormality Abnormal ECG When compared with ECG of 15-OCT-2022 04:59, Nonspecific T wave abnormality now evident in Lateral leads Confirmed by Jeff Palm ([id number]) on 10/18/2022 12:39:11 AM Referred By: REFERRED SELF Confirmed By:Jeff Palm
== END 2022-10-17 13:31 | disposition home or self-care (01) | DRG 247 ==
LOC: ED 03:13 → CC 03:54 → 1E 04:56 → SUATTDRO 04:56
DX: I21.29 ST elevation (STEMI) myocardial infarction involving other sites; I25.10 Atherosclerotic heart disease of native coronary artery without angina pectoris; N17.9 Acute kidney failure, unspecified; N40.1 Benign prostatic hyperplasia with lower urinary tract symptoms; K21.9 Gastro-esophageal reflux disease without esophagitis; I25.5 Ischemic cardiomyopathy